=== PATIENT | male | born 1980 | race Caucasian/White ===

== ENCOUNTER → 2018-07-29 08:11 | Outpatient (CLI) | payer OTHER, SELFPAY ==
--- NOTE | 2018-07-29 | DI.MRI.S_ITS ---
PROCEDURE: MR LUMBAR SPINE WO CON INDICATIONS: LUMBAR SPINE PAIN TECHNIQUE: Noncontrast sagittal T1 spin echo and T2 fast echo, sagittal STIR, axial T1 and T2 fast spin echo through the lumbar spine. In cases with scoliosis, additional coronal T2 fast spin echo may be performed. COMPARISON: None. FINDINGS: Image quality: Excellent. Alignment and Curvature: There is minimal retrolisthesis seen at the L4-L5 level. Bone Marrow: Marrow is of normal overall signal. No acute vertebral body compression fractures. Spinal Cord: Conus medullaris terminates at the L1 level. Visualized cord demonstrates normal signal and size. Paraspinous Soft Tissues: No paravertebral masses. T12-L1: Normal appearance. L1-L2: Normal appearance. L2-L3: Normal appearance. L3-L4: Normal appearance. L4-L5: The disc height is well-preserved. Loss of disc signal is seen at this level. Mild to moderate disc bulge is seen. Moderate bilateral neural foraminal narrowing is seen, right worse than left. Moderate central canal narrowing is seen. L5-S1: The disc height is well-preserved. Loss of disc signal is seen at this level. Moderate generalized disc bulge is seen. Mild to moderate facet hypertrophy is seen. Moderate bilateral neural foraminal narrowing is seen at this level. Mild to moderate central canal narrowing is seen. S1-S2: A transitional, rudimentary disc is seen, which demonstrates normal signal. No significant neural foraminal or central canal narrowing can be seen. IMPRESSION: Focal lower lumbar spine degenerative change can be seen. Dictated by: Red Dyer M.D. on 07/29/2018 at 8:32 Approved by: Red Dyer M.D. on 07/29/2018 at 8:37
== END ==
PROVIDERS: Visit Provider Orthopaedic Surgery Orthopaedic Surgery of the Spine
DX: M54.5 Low back pain (principal); M51.36 Other intervertebral disc degeneration, lumbar region; M51.37 Other intervertebral disc degeneration, lumbosacral region; M48.061 Spinal stenosis, lumbar region without neurogenic claudication; M48.07 Spinal stenosis, lumbosacral region
CPT/HCPCS: 72148

== ENCOUNTER 2019-02-11 20:48 | Emergency (ER) | payer OTHER, SELFPAY ==
[2019-02-11 20:50] VITALS: BP 117/74; PULSE 71; RESP 19; TEMP 36.4; O2SAT 96
--- NOTE | 2019-02-11 21:18 | ED.SKABFB ---
HPI - Skin/Abscess/Foreign Bdy <TAMMY Schmidt - Last Filed: 02/11/19 22:34> General Chief complaint: Skin/Abscess/Foreign Body Stated complaint: Lump on R Eyelid Time Seen by Provider: 02/11/19 21:04 Source: patient Mode of arrival: ambulatory Limitations: no limitations History of Present Illness HPI narrative: 39-year-old healthy male presents emergency department with complaint of nodule on the right upper eyelid, states that he has had this a few months ago and resolved spontaneously and now has returned over the past week. States it is slightly painful to touch and feels like his eyelid is being pulled. Denies double vision, vision loss, headaches, eye discharge, painful with movement, headaches, fever, or sore throat. Patient has attempted [facility] but it has taken multiple months. Related Data Previous Rx's Medication Instructions Recorded cephalexin [Keflex] 500 mg PO Q6H 7 Days #0 cap 05/16/17 hydrocodone-acetaminophen 0 tab PO Q6HP PRN #15 tab 05/16/17 Allergies Allergy/AdvReac Type Severity Reaction Status Date / Time No Known Allergies Allergy Uncoded 02/11/19 20:56 Review of Systems <TAMMY Schmidt - Last Filed: 02/11/19 22:34> Review of Systems REVIEW OF SYSTEMS: GENERAL: Denies fever or chills. HENT: No head trauma, hearing loss or sore throat. EYES: See HPI, Complains of right a nodule. CARDIOVASCULAR: No chest pain or syncope. RESPIRATORY: No shortness of breath or cough. GASTROINTESTINAL: No nausea, vomiting, diarrhea, or constipation. MUSCULOSKELETAL: No pain, weakness, or deformities. INTEGUMENTARY: See HPI. NEURO: No numbness, tingling, memory loss, or confusion. PSYCH: No behavior or mood changes. PFSH <TAMMY Schmidt - Last Filed: 02/11/19 22:34> Medical History Seasonal allergies (Chronic) Social History Smoking Status: Current every day smoker Social History Smoking Status: Current every day smoker Exam <TAMMY Schmidt - Last Filed: 02/11/19 22:34> Initial Vital Signs Initial Vital Signs: Vital Signs Temperature 97.6 F 02/11/19 20:50 Pulse Rate 71 02/11/19 20:50 Respiratory Rate 19 02/11/19 20:50 Blood Pressure 117/74 02/11/19 20:50 Pulse Oximetry 96 02/11/19 20:50 PHYSICAL EXAMINATION: GENERAL: Well groomed, alert, and cooperative Answers questions promptly and appropriately. Vital signs noted. HENT: Normocephalic, atraumatic. Ear canals patent. Oral mucosa is pink and moist. EYES: 1 cm in diameter nodule on lateral aspect of right upper eyelid. Area was hard and nontender with very slight erythema on nodule, no surrounding erythema or periorbital swelling, no discharge. PERRLA, EOMIs without pain, conjunctiva pink, sclera white. MUSCULOSKELETAL: Normal gait and coordination. Equal tone and mass bilaterally. EXTREMITIES: CMS intact. Moves all extremities. SKIN: Warm, dry, soft, appropriate color for ethnicity. No , rashes, or wounds. NEURO: Alert and Oriented X 3. Good coordination. No ataxia, or sensory deficits, or cognitive issues. PSYCH: Appropriate affect and mood. <Dimitrios Gonzales DO - Last Filed: 02/12/19 00:42> Initial Vital Signs Initial Vital Signs: Vital Signs Temperature 97.6 F 02/11/19 20:50 Pulse Rate 71 02/11/19 20:50 Respiratory Rate 19 02/11/19 20:50 Blood Pressure 117/74 02/11/19 20:50 Pulse Oximetry 96 02/11/19 20:50 Course <TAMMY Schmidt - Last Filed: 02/11/19 22:34> Consultations Consultation #1: Patient staffed with who agreed with plan of care. Vital Signs - 8 hr 02/11/19 20:50 Temperature 97.6 F Pulse Rate 71 Respiratory Rate 19 Blood Pressure 117/74 Pulse Oximetry 96 <Dimitrios Gonzales DO - Last Filed: 02/12/19 00:42> Vital Signs - 8 hr 02/11/19 20:50 Temperature 97.6 F Pulse Rate 71 Respiratory Rate 19 Blood Pressure 117/74 Pulse Oximetry 96 MDM - Skin/Abscess/Foreign Bdy <TAMMY Schmidt - Last Filed: 02/11/19 22:34> Medical Records Attestation: I reviewed the patient's medical records. Lab Data Attestation: I reviewed the patient's lab results. [facility] Narrative Medical decision making narrative: Have a high suspicion Chalazion appearance of nodule and history of recurrence in similar area. Very low suspicion for surrounding cellulitis or infection due to localized irritation and lack of periorbital swelling. Return precautions given and follow-up instructions discussed. Discharge Plan Departure Patient Disposition: Home Clinical Impression: Chalazion Qualifiers: Laterality: right Eyelid: upper Qualified Code(s): H00.11 - Chalazion right upper eyelid Discharge Date/Time: 02/11/19 21:24 Interventions: ED Discharge Assessment Last Done: 02/11/19 21:23 Instructions: DI for Chalazion Activity Restrictions/Additional Instructions: Thank you for entrusting me with your care today. As discussed, the nodule on your eye is caused by swelling of your eye ducts and granulated tissue. Please warm compresses over where I (like a warm washcloth) 3 to 5 times a day when possible. Can try [id number] allergy eyedrops to decrease your allergy symptoms. Follow up with your eye doctor when you're able to get an appointment. Please return to the emergency department if you have vision loss, double vision, swelling around urine tire eye, chest pain, shortness of breath, or syncope. Prescriptions: No Action hydrocodone-acetaminophen 5 MG/325 MG tablet PO Q6HP PRNQty: 15 RF: 0 cephalexin [Keflex] 500 MG capsule 500 mg PO Q6H 7 Days Qty: 0 RF: 0 <Dimitrios Gonzales DO - Last Filed: 02/12/19 00:42> Cosign ED Attending Pilar Attestation: I was available for consultation during this patient's emergency department encounter
== END 2019-02-11 21:24 | disposition home or self-care (01) ==
LOC: ED 21:15
PROVIDERS: Emergency Provider Nurse Practitioner
DX: H00.11 Chalazion right upper eyelid (principal)
CPT/HCPCS: 99282